=== PATIENT | female | born 1965 | race African-American/Black ===

== ENCOUNTER 2022-10-16 09:31 | Inpatient (IN) | payer OTHER ==
[~2022-10-16] VITALS: Ht 167.6 cm; Wt 52.2 kg
[2022-10-16 10:13] LABS: BG BASE EXCESS 2.2 mmol/L (-2.0-2.0); BG CARBOXYHEMOGLOBIN 9.3 % (0.5-1.5); BG DEOXYHEMOGLOBIN 1.5 % (0.0-5.0); BG FRACTION INSPIRED OXYGEN 40; BG HCO3 ACT 30.6 mmol/L (22.0-26.0); BG METHEMOGLOBIN 0.3 % (0.0-1.5); BG OXYGEN SATURATION 98.3 % (92.0-98.5); BG OXYHEMOGLOBIN 88.9 % (94.0-97.0); BG PH 7.297 (7.350-7.450); BG PO2 130.5 mmHg (75.0-100.0); BG SAMPLE SITE RIGHT RADIAL; BG TOTAL HEMOGLOBIN 15.2 g/dL (12.0-18.0); BG VENT MODE MASK - BIPAP
[2022-10-16 10:27] LABS: BASOPHILS % 0.4 % (0.0-2.0); EOSINOPHILS % 0.5 % (0.0-5.0); HEMATOCRIT. 43.7 % (36.0-48.0); HEMOGLOBIN. 14.5 g/dL (12.0-16.0); LYMPHOCYTES % 23.5 % (20.0-50.0); MEAN CORPUSCULAR HEMOGLOBIN 31.6 pg (28.0-32.0); MEAN CORPUSCULAR VOLUME 95.4 fL (81.0-99.0); MEAN PLATELET VOLUME 7.4 fl (7.4-10.4); NEUTROPHILS % 68.6 % (40.0-76.0); PLATELET 267 x1000/uL (130-400); RED BLOOD CELL COUNT 4.58 mill/uL (4.2-5.4); RED CELL DISTRIBUTION WIDTH 13.3 % (11.6-14.6)
[2022-10-16 10:36] LABS: CHLORIDE 105 mEq/L (98-107)
[2022-10-16 10:46] LABS: ETHANOL BLOOD < 10 mg/dL
[2022-10-16] MEDS ORDERED: METHYLPREDNISOLONE SOD SUCC 125 MG/2 ML VIAL IV STA (11:05)
[2022-10-16] MEDS ORDERED: IPRATROPIUM BROMIDE (0.02%) 0.5MG/2.5ML NEB HHN STA (11:05)
[2022-10-16] MEDS ORDERED: ALBUTEROL (0.083%) 2.5MG/3ML NEB HHN SCH (11:30)
[2022-10-16 12:34] LABS: *AMPHETAMINES SCREEN URINE NEGATIVE (NEGATIVE); *BARBITURATES SCREEN URINE NEGATIVE (NEGATIVE); *BENZODIAZEPINES SCREEN URINE NEGATIVE (NEGATIVE); *COCAINE SCREEN URINE PRESUMTIVE POSITIVE (NEGATIVE); CANNABINOID URINE SCREEN NEGATIVE (NEGATIVE); METHADONE URINE SCREEN NEGATIVE (NEGATIVE); OPIATES URINE SCREEN NEGATIVE (NEGATIVE); PHENCYCLIDINE URINE SCREEN NEGATIVE (NEGATIVE)
[2022-10-16] MEDS: IPRATROPIUM/ALBUTEROL 0.5-3(2.5)MG/3ML NEB HHN SCH (12:47)
[2022-10-16] MEDS ORDERED: ONDANSETRON HCL 4MG/2ML INJ IV PRN (13:15)
[2022-10-16] MEDS ORDERED: ACETAMINOPHEN 325MG TABLET PO PRN (13:15)
[2022-10-16 14:00] VITALS: BP 121/87
[2022-10-16] MEDS: METHYLPREDNISOLONE SOD SUCC 40 MG/ML VIAL IV SCH ×2 (14:36→21:03)
[2022-10-16 15:20] VITALS: BP 121/87
[2022-10-16 16:00] VITALS: BP 130/77
[2022-10-16] MEDS ORDERED: AZITHROMYCIN 500 MG TABLET PO NR (16:00)
[2022-10-16 18:00] VITALS: BP 122/68
[2022-10-16] MEDS ORDERED: IPRATROPIUM/ALBUTEROL 0.5-3(2.5)MG/3ML NEB HHN SCH (18:00)
[2022-10-16 20:00] VITALS: BP 117/69
[2022-10-16 22:00] VITALS: BP 124/65
[2022-10-17] VITALS (12 sets, daily range): BP systolic 99–125; BP diastolic 57–96
[2022-10-17] MEDS: METHYLPREDNISOLONE SOD SUCC 40 MG/ML VIAL IV SCH ×3 (05:15→20:41)
[2022-10-17] MEDS: AZITHROMYCIN 250 MG TABLET PO SCH (08:42)
[2022-10-17] MEDS: IPRATROPIUM/ALBUTEROL 0.5-3(2.5)MG/3ML NEB HHN SCH ×4 (09:25→23:40)
[2022-10-18] VITALS (9 sets, daily range): BP systolic 97–122; BP diastolic 56–71
[2022-10-18] MEDS: IPRATROPIUM/ALBUTEROL 0.5-3(2.5)MG/3ML NEB HHN SCH ×3 (03:50→12:07)
[2022-10-18] MEDS: METHYLPREDNISOLONE SOD SUCC 40 MG/ML VIAL IV SCH (05:30)
[2022-10-18] MEDS: AZITHROMYCIN 250 MG TABLET PO SCH (08:56)
[2022-10-18] MEDS ORDERED: P20 MT (10:42)
[2022-10-18] MEDS ORDERED: ALBU18HF2 IH (10:42)
[2022-10-18] MEDS ORDERED: FLUT1DIS3 INH (10:42)
[2022-10-18] MEDS ORDERED: PREDNISONE 20MG TABLET PO SCH (17:00)
== END 2022-10-18 15:20 | disposition home or self-care (01) | DRG 816 ==
LOC: ER 09:31 → 5EST 12:09 → ENRESERV 12:37
PROVIDERS: ADMIT Internal Medicine; ATTEND Internal Medicine
PROC: 5A09357 Assistance with Respiratory Ventilation, Less than 24 Consecutive Hours, Continuous Positive Airway Pressure (ICD-10-PCS; principal; 2022-10-16)
PROC: 5A09357 Assistance with Respiratory Ventilation, Less than 24 Consecutive Hours, Continuous Positive Airway Pressure (ICD-10-PCS; 2022-10-17)
DX: T40.5X1A Poisoning by cocaine, accidental (unintentional), initial encounter (principal); J96.02 Acute respiratory failure with hypercapnia; J68.0 Bronchitis and pneumonitis due to chemicals, gases, fumes and vapors; I10 Essential (primary) hypertension; F14.90 Cocaine use, unspecified, uncomplicated; F17.210 Nicotine dependence, cigarettes, uncomplicated; Z20.822 Contact with and (suspected) exposure to COVID-19; Y92.89 Other specified places as the place of occurrence of the external cause
CPT/HCPCS: 36415; 36600; 71045; 80053; 80305; 80320; 82375; 82805; 83880; 84484; 85025; 87426; 93005; 94660; 99291; J2920; J2930; G0480

== ENCOUNTER 2023-02-08 05:11 | Inpatient (IN) | payer MEDICAID, OTHER ==
[2023-02-08] VITALS (10 sets, daily range): BP systolic 96–134; BP diastolic 61–73
[~2023-02-08] VITALS: Ht 167.6 cm; Wt 50.3 kg
[~2023-02-08 05:11] MED LIST: ALBU18HF2 IH; FLUT1DIS3 INH; P20 MT
[2023-02-08] MEDS ORDERED: IPRATROPIUM BROMIDE (0.02%) 0.5MG/2.5ML NEB HHN STA (05:28)
[2023-02-08] MEDS ORDERED: ALBUTEROL (0.083%) 2.5MG/3ML NEB HHN STA (05:28)
[2023-02-08] MEDS ORDERED: METHYLPREDNISOLONE SOD SUCC 125 MG/2 ML VIAL IV STA (05:28)
[2023-02-08] MEDS ORDERED: MAGNESIUM 2 G PREMIX 50 ML IV ONE (05:30)
[2023-02-08 05:59] LABS: BASOPHILS % 0.2 % (0.0-2.0); EOSINOPHILS % 0.1 % (0.0-5.0); HEMATOCRIT. 42.6 % (36.0-48.0); LYMPHOCYTES % 12.7 % (20.0-50.0); MEAN CORPUSCULAR HEMOGLOBIN 31.7 pg (28.0-32.0); MEAN CORPUSCULAR VOLUME 96.4 fL (81.0-99.0); MEAN PLATELET VOLUME 7.1 fl (7.4-10.4); MONOCYTES % 7.6 % (2.0-8.0); NEUTROPHILS % 79.4 % (40.0-76.0); PLATELET 279 x1000/uL (130-400); RED BLOOD CELL COUNT 4.42 mill/uL (4.2-5.4); RED CELL DISTRIBUTION WIDTH 14.5 % (11.6-14.6)
[2023-02-08 06:03] LABS: D-DIMER 0.29 mg/L FEU (<0.50); PARTIAL THROMBOPLASTIN TIME 27.2 sec (23.4-31.0); PROTHROMBIN TIME 10.8 sec (9.6-11.0)
[2023-02-08 06:38] LABS: CHLORIDE 112 mEq/L (98-107)
[2023-02-08 06:50] LABS: ETHANOL BLOOD < 10 mg/dL
[2023-02-08 06:56] LABS: BG BASE EXCESS 6.2 mmol/L (-2.0-2.0); BG CARBOXYHEMOGLOBIN 3.7 % (0.5-1.5); BG FRACTION INSPIRED OXYGEN 36; BG HCO3 ACT 33.9 mmol/L (22.0-26.0); BG METHEMOGLOBIN 0.2 % (0.0-1.5); BG OXYGEN SATURATION 95.8 % (92.0-98.5); BG OXYHEMOGLOBIN 92.1 % (94.0-97.0); BG PCO2 63.4 mmHg (35.0-45.0); BG PH 7.346 (7.350-7.450); BG SAMPLE SITE RIGHT RADIAL; BG TOTAL HEMOGLOBIN 13.6 g/dL (12.0-18.0); BG VENT MODE NASAL CANNULA
[2023-02-08] MEDS ORDERED: ONDANSETRON HCL 4MG/2ML INJ IV PRN (11:15)
[2023-02-08] MEDS ORDERED: ACETAMINOPHEN 325MG TABLET PO PRN (11:15)
[2023-02-08] MEDS ORDERED: POTASSIUM CHLORIDE 20MEQ TABLET SR PO NR (11:30)
[2023-02-08] MEDS ORDERED: IPRATROPIUM/ALBUTEROL 0.5-3(2.5)MG/3ML NEB HHN SCH (12:00)
[2023-02-08] MEDS: METHYLPREDNISOLONE SOD SUCC 40 MG/ML VIAL IV SCH ×2 (13:29→21:52)
[2023-02-08] MEDS: ALBUTEROL (0.083%) 2.5MG/3ML NEB HHN SCH ×2 (14:38→20:28)
[2023-02-08] MEDS: IPRATROPIUM BROMIDE (0.02%) 0.5MG/2.5ML NEB HHN SCH ×2 (14:38→20:28)
[2023-02-09] VITALS: BP 112/71
[2023-02-09] MEDS: IPRATROPIUM BROMIDE (0.02%) 0.5MG/2.5ML NEB HHN SCH ×2 (02:22→11:23)
[2023-02-09] MEDS: ALBUTEROL (0.083%) 2.5MG/3ML NEB HHN SCH ×2 (02:22→11:23)
[2023-02-09 04:00] VITALS: BP 119/75
[2023-02-09] MEDS: METHYLPREDNISOLONE SOD SUCC 40 MG/ML VIAL IV SCH (06:44)
[2023-02-09 08:00] VITALS: BP 122/86
[2023-02-09] MEDS ORDERED: IPRATROPIUM/ALBUTEROL 0.5-3(2.5)MG/3ML NEB HHN PRN (11:30)
[2023-02-09] MEDS ORDERED: IPRATROPIUM BROMIDE (0.02%) 0.5MG/2.5ML NEB HHN PRN (11:30)
[2023-02-09] MEDS ORDERED: ALBUTEROL (0.083%) 2.5MG/3ML NEB HHN PRN (11:30)
[2023-02-09 11:46] VITALS: BP 108/61
[2023-02-09 12:13] LABS: BG BASE EXCESS 6.7 mmol/L (-2.0-2.0); BG CARBOXYHEMOGLOBIN 2.3 % (0.5-1.5); BG DEOXYHEMOGLOBIN 8.9 % (0.0-5.0); BG FRACTION INSPIRED OXYGEN 28; BG HCO3 ACT 33.6 mmol/L (22.0-26.0); BG METHEMOGLOBIN 0.3 % (0.0-1.5); BG OXYGEN SATURATION 90.9 % (92.0-98.5); BG OXYHEMOGLOBIN 88.5 % (94.0-97.0); BG PCO2 57.6 mmHg (35.0-45.0); BG PH 7.384 (7.350-7.450); BG PO2 59.9 mmHg (75.0-100.0); BG SAMPLE SITE RIGHT BRACHIAL; BG TOTAL HEMOGLOBIN 14.3 g/dL (12.0-18.0); BG VENT MODE NASAL CANNULA
[2023-02-09] MEDS ORDERED: P20 MT (12:14)
[2023-02-09 13:15] VITALS: BP 108/61
== END 2023-02-09 13:53 | disposition home or self-care (01) | DRG 140 ==
LOC: ER 05:11 → 5EST 07:30 → EDBEDREQSVC 07:54 → ENRESERV 08:54
PROVIDERS: ADMIT Internal Medicine; ATTEND Internal Medicine
PROC: 5A09357 Assistance with Respiratory Ventilation, Less than 24 Consecutive Hours, Continuous Positive Airway Pressure (ICD-10-PCS; principal; 2023-02-08)
DX: J44.1 Chronic obstructive pulmonary disease with (acute) exacerbation (principal); J96.02 Acute respiratory failure with hypercapnia; F14.90 Cocaine use, unspecified, uncomplicated; I10 Essential (primary) hypertension; F17.210 Nicotine dependence, cigarettes, uncomplicated; Z20.822 Contact with and (suspected) exposure to COVID-19; Z99.81 Dependence on supplemental oxygen; J68.0 Bronchitis and pneumonitis due to chemicals, gases, fumes and vapors
CPT/HCPCS: 36415; 36600; 71045; 80053; 80320; 82375; 82805; 83880; 84484; 85025; 85379; 87426; 87804; 93005; 94640; 94660; 99291; C9803; J2920; J2930; J3475; G0480